=== PATIENT | female | born 1980 | race Caucasian/White ===

== ENCOUNTER 2019-09-11 19:53 | Emergency (ER) | payer OTHER ==
--- NOTE | 2019-09-11 20:05 | PDOC ---
Rapid Medical Evaluation Chief Complaint: Foreign Body (FB) Time Seen by Provider: 09/11/19 20:01 Medical Evaluation: Allergies Allergy/AdvReac Type Severity Reaction Status Date / Time No Known Allergies Allergy Verified 09/02/19 07:49 09/11/19 20:02 39 year old female reports a dust got in the eye early this morning, since then she has been having pain to the eye with itching. patient is able to see out of the eye. Last Vital Signs Temp Pulse Resp BP Pulse Ox 98.3 F 67 20 130/76 97 09/11/19 20:01 09/11/19 20:01 09/11/19 20:01 09/11/19 20:01 09/11/19 20:01 PE: patient have erythema to sclera and some tearing noted. A: red eye; corneal abrasion? P:patient to fast track./ 09/11/19 20:09 Discharge Disposition - Diagnosis Redness of left eye - Referrals - Patient Instructions - Post Discharge Activity
[2019-09-11 20:08] VITALS: BP 130/76; PULSE 67; TEMP 98.3; BMI 34.3
[2019-09-11] MEDS ORDERED: ERYTHROMYCIN 0.5% OPHTHALMIC OINTMENT 3.5 GM TUBE ONE (20:28)
--- NOTE | 2019-09-11 20:29 | PDOC ---
History of Present Illness - General Chief Complaint: Foreign Body (FB) Stated Complaint: RIGHT EYE INJURY Time Seen by Provider: 09/11/19 20:01 History Source: Patient Exam Limitations: No Limitations - History of Present Illness Initial Comments: 09/11/19 20:27 HISTORY OF PRESENT ILLNESS: 39-year-old woman who presents emergency department for evaluation of foreign body sensation to the right eye while walking in the street. Patient reports he felt something go into her eye but is unsure what it was. She denies any blurry vision, dizziness, lightheadedness or diplopia. No recent travel or sick contacts. PAST MEDICAL HISTORY: Denies past medical history SURGICAL HISTORY: Denies ALLERGIES: No known drug allergies REVIEW OF SYSTEMS General/Constitutional: Denies fever or chills. Denies weakness, weight change. HEENT: See HPI Cardiovascular: Denies chest pain or shortness of breath. Respiratory: Denies cough, wheezing, or hemoptysis. Gastrointestinal: Denies nausea, vomiting, diarrhea or constipation. Denies rectal bleeding. Genitourinary: Denies dysuria, frequency, or change in urination. Musculoskeletal: Denies joint or muscle swelling or pain. Denies neck or back pain. Skin and breasts: Denies rash or easy bruising. Neurologic: Denies headache, vertigo, loss of consciousness, or loss of sensation. Psychiatric: Denies depression or anxiety. Endocrine: Denies increased thirst. Denies abnormal weight change. Hematologic/Lymphatic: Denies anemia, easy bleeding, or history of blood clots. Allergic/Immunologic: Denies hives or skin allergy. Denies latex allergy. PHYSICAL EXAM General Appearance: Well-appearing, appropriately dressed. No apparent distress, no intoxication. HEENT: EOMI, PERRLA, normal ENT inspection, normal voice, TMs normal, pharynx normal. No conjunctival pallor. No photophobia, scleral icterus. EYE EXAMINATION: Visual acuity: 20/20 in the left eye, 20/20 in the right eye, near, uncorrected The lid and lashes are normal. Extraocular movements are intact. The conjunctiva is clear without erythema, injection, or discharge The corneal surface is normal post tetracaine and fluorescein. There is no corneal abrasion or foreign body. There is no abnormal fluorescein uptake. The pupils are equal, round and reactive to light. The fundus shows normal vessels and normal discs. Past History - Medical History Allergies/Adverse Reactions: Allergies Allergy/AdvReac Type Severity Reaction Status Date / Time No Known Allergies Allergy Verified 09/02/19 07:49 Home Medications: Ambulatory Orders Omeprazole 20 mg PO DAILY #30 tablet. 09/02/19 COPD: No - Immunization History Immunization Up to Date: No - Psycho-Social/Smoking History Smoking History: Never smoked Have you smoked in the past 12 months: No - Substance Abuse Hx (Audit-C & DAST Scrn) How often the patient has a drink containing alcohol: Never Score: In Men: 4 or > Positive; In Women: 3 or > Positive: 0 Screen Result (Pos requires Nsg. Audit-10AR): Negative In the last yr the pt used illegal drug/Rx for NonMed reason: No Score: Yes response is considered Positive: 0 Screen Result (Positive result requires Nsg. DAST-10): Negative *Physical Exam - Vital Signs Last Vital Signs Temp Pulse Resp BP Pulse Ox 98.3 F 67 20 130/76 97 09/11/19 20:01 09/11/19 20:01 09/11/19 20:01 09/11/19 20:01 09/11/19 20:01 Medical Decision Making - Medical Decision Making 09/11/19 20:28 A/P: 39-year-old woman with foreign body sensation to her right eye No hyphema noted Visual acuity 20/20 right eye, left eye and both eyes No foreign body or corneal abrasion present after fluorescein staining Eye flushed with normal saline No foreign body present under eyelid Erythromycin ointment Discharge home to follow-up with primary doctor/ophthalmology as needed. Portions of this note have been documented using voice recognition software. As a result, errors may occur in the power supply engineer process. Effort has been made to correct all grammatical and power supply engineer error, but some may have been missed which may produce sporadic inaccurate power supply engineer or nonsensical phrases. Discharge - Discharge Information Problems reviewed: Yes Clinical Impression/Diagnosis: Foreign body of right eye Qualifiers: Encounter type: initial encounter Qualified Code(s): T15.91XA - Foreign body on external eye, part unspecified, right eye, initial encounter Condition: Stable Disposition: HOME - Admission No - Follow up/Referral Referrals: Ar Rojas MD [Primary Care Provider] - Kun Siddiqi MD [Staff Physician] - - Patient Discharge Instructions Additional Instructions: Rest, avoid rubbing eyes Wash hands frequently as this is very contagious Wash hands, use eye drops as directed, wash hands after use Do not share eye ointment with other person to may become infected as this will infect them Erthromycin ointment to affected eye 4 times a day for 5 days Followup with ophthalmology or private physician as needed Descanse, evite frotarse los ojos Lvese las liza con frecuencia, ya que esto es muy contagioso Lvese las liza, use gotas para los ojos gamal se indica, lvese las liza despus de bates uso No comparta pomada ocular con otra persona para que pueda infectarse, ya que esto los infectar Pomada de ertromicina al jason afectado 4 veces al da josh 5 nathan Seguimiento con oftalmologa o mdico privado segn sea necesario - Post Discharge Activity
== END 2019-09-11 20:35 | disposition home or self-care (01) ==
LOC: JER 19:53
DX: T15.91XA Foreign body on external eye, part unspecified, right eye, initial encounter (principal)
CPT/HCPCS: 99283-25

== ENCOUNTER 2021-11-18 13:33 | Emergency (ER) | payer OTHER ==
[2021-11-18 14:14] VITALS: BP 116/79; PULSE 64; RESP 18; TEMP 97.6; BMI 41.5
[2021-11-18 17:32] LABS: BASO % 0.3 % (0-2.0); HEMATOCRIT 37.4 % (32.4-45.2); HEMOGLOBIN 12.3 GM/dL (10.7-15.3); LYMPH % 31.4 % (8-40); MCH 27.1 pg (25.7-33.7); MCHC 32.8 g/dl (32.0-36.0); MEAN CELL VOLUME 82.5 fl (80-96); MEAN PLT VOLUME 7.8 fl (7.5-11.1); MONO % 8.5 % (3.8-10.2); NEUT % 58.8 % (42.8-82.8); PLATELET COUNT 273 10^3/uL (134-434); RBC 4.53 M/mm3 (3.60-5.2); RDW 12.7 % (11.6-15.6); WHITE BLOOD COUNT 9.7 K/mm3 (4.0-10.0)
[2021-11-18 17:52] LABS: CHLORIDE 107 mmol/L (98-107); SODIUM 142 mmol/L (136-145)
[2021-11-18 17:54] LABS: CALCIUM 8.8 mg/dL (8.5-10.1)
[2021-11-18 17:55] LABS: ALBUMIN 3.5 g/dl (3.4-5.0); ANION GAP 7 MMOL/L (8-16); BLOOD UREA NITROGEN 9.8 mg/dL (7-18); CO2 28 mmol/L (21-32); GLUCOSE,RANDOM 82 mg/dL (74-106)
[2021-11-18 17:58] LABS: CREATININE 0.6 mg/dL (0.55-1.3); SGOT/AST 31 U/L (15-37); SGPT/ALT 47 U/L (13-61)
[2021-11-18 17:59] LABS: BILIRUBIN,TOTAL 0.2 mg/dL (0.2-1); TOT PROT 7.1 g/dl (6.4-8.2)
[2021-11-18 18:01] LABS: ALK PHOS 57 U/L (45-117)
== END 2021-11-18 20:12 | disposition left against medical advice (07) ==
LOC: JER 13:33
DX: R07.9 Chest pain, unspecified (principal)
CPT/HCPCS: 36415; 71046-TC-FY; 73610-TC-LT-FY; 73630-TC-LT; 80053; 84484; 85025; 93005; 93010; 99285-25

== ENCOUNTER 2021-12-19 14:03 | Emergency (ER) | payer OTHER ==
[2021-12-19 14:19] VITALS: BP 127/84; PULSE 63; RESP 19; TEMP 98.2; BMI 33.9
[2021-12-19 16:27] LABS: PH,URINE 5.5 (5.0-8.0); URINE APPEARANCE CLEAR; URINE BILIRUBIN NEGATIVE (NEGATIVE); URINE COLOR YELLOW; URINE GLUCOSE (UA) NEGATIVE (NEGATIVE); URINE KETONE TRACE (NEGATIVE); URINE LEUK ESTERASE NEGATIVE (NEGATIVE); URINE NITRITE NEGATIVE (NEGATIVE); URINE PROTEIN NEGATIVE (NEGATIVE)
[2021-12-19 16:30] LABS: HCG,QUALITATIVE URINE Negative
[2021-12-19 16:36] LABS: BASO % 0.4 % (0-2.0); EOS % 0.8 % (0-4.5); HEMATOCRIT 41.1 % (32.4-45.2); HEMOGLOBIN 12.9 GM/dL (10.7-15.3); LYMPH % 31.3 % (8-40); MCH 25.9 pg (25.7-33.7); MCHC 31.2 g/dl (32.0-36.0); NEUT % 59.5 % (42.8-82.8); PLATELET COUNT 341 10^3/uL (134-434); RBC 4.96 M/mm3 (3.60-5.2); RDW 13.2 % (11.6-15.6); WHITE BLOOD COUNT 11.8 K/mm3 (4.0-10.0)
[2021-12-19 16:59] LABS: ALBUMIN 3.9 g/dl (3.4-5.0); BLOOD UREA NITROGEN 12.1 mg/dL (7-18); CALCIUM 9.2 mg/dL (8.5-10.1)
[2021-12-19 17:01] LABS: CREATININE 0.8 mg/dL (0.55-1.3)
[2021-12-19 17:04] LABS: BILIRUBIN,TOTAL 0.6 mg/dL (0.2-1); TOT PROT 7.8 g/dl (6.4-8.2)
== END 2021-12-19 18:43 | disposition home or self-care (01) ==
LOC: JERFT 14:03 → JER 14:03 → JERFT 18:43
DX: N76.0 Acute vaginitis (principal)
CPT/HCPCS: 36415; 80053; 81003; 84703; 85025; 87070; 87086; 87205; 99283-25

== ENCOUNTER 2023-09-14 09:55 | Emergency (ER) | payer OTHER ==
[2023-09-14 10:20] VITALS: BP 143/48; PULSE 79; RESP 20; TEMP 98.8; BMI 34.9
[2023-09-14] MEDS ORDERED: MAG HYDROX/AL HYDROX/SIMETH 30 ML UNIT-DOSE CUP ONE (11:51)
[2023-09-14] MEDS: MAG HYDROX/AL HYDROX/SIMETH 30 ML UNIT-DOSE CUP PO ONE (11:51)
[2023-09-14] MEDS: MINERAL OIL ENEMA 133 ML ENEMA RC ONE (11:51)
[2023-09-14 11:54] LABS: URINE APPEARANCE CLEAR; URINE BILIRUBIN NEGATIVE (NEGATIVE); URINE COLOR YELLOW; URINE GLUCOSE (UA) NEGATIVE (NEGATIVE); URINE KETONE NEGATIVE (NEGATIVE); URINE LEUK ESTERASE NEGATIVE (NEGATIVE); URINE NITRITE NEGATIVE (NEGATIVE); URINE PROTEIN NEGATIVE (NEGATIVE); URINE UROBILINOGEN 0.2 mg/dL (0.2-1.0)
== END 2023-09-14 14:19 | disposition home or self-care (01) ==
LOC: JER 09:55
DX: K59.00 Constipation, unspecified (principal); R10.33 Periumbilical pain; R30.0 Dysuria; K64.4 Residual hemorrhoidal skin tags; K64.8 Other hemorrhoids; R11.0 Nausea
CPT/HCPCS: 81003; 84703; 87086; 99283-25